=== PATIENT | female | born 1980 | race Caucasian/White ===

== ENCOUNTER 2018-09-19 10:24 | Day surgery (SDC) | payer OTHER | END 2018-09-19 21:35 | disposition home or self-care (01) | LOC: CIR.AMB 10:24 | DX: O02.1 Missed abortion (principal); Z34.01 Encounter for supervision of normal first pregnancy, first trimester ==

== ENCOUNTER 2019-10-23 14:15 | Inpatient (IN) | payer OTHER ==
[~2019-10-23] VITALS: Ht 167.6 cm; Wt 72.6 kg
[2019-10-28] MEDS ORDERED: PRENATAL TABLE1 EAC3 PO (20:41)
== END 2019-10-30 12:45 | disposition home or self-care (01) | DRG 807 ==
LOC: LDR 10-28 16:56 → OB/GYN 10-28 20:02
PROVIDERS: ADMIT Obstetrics & Gynecology
PROC: 10E0XZZ Delivery of Products of Conception, External Approach (ICD-10-PCS; principal; 2019-10-28)
PROC: 0KQM0ZZ Repair Perineum Muscle, Open Approach (ICD-10-PCS; 2019-10-28)
PROC: 4A1HXFZ Monitoring of Products of Conception, Cardiac Rhythm, External Approach (ICD-10-PCS; 2019-10-28)
PROC: 3E033VJ Introduction of Other Hormone into Peripheral Vein, Percutaneous Approach (ICD-10-PCS; 2019-10-28)
DX: O70.1 Second degree perineal laceration during delivery (principal); Z37.0 Single live birth; Z3A.38 38 weeks gestation of pregnancy